=== PATIENT | female | born 1985 | race African-American/Black ===

== ENCOUNTER 2020-10-03 12:09 | Emergency (ER) | payer OTHER ==
[~2020-10-03] VITALS: Ht 170.2 cm; Wt 81.8 kg
[2020-10-03] MEDS ORDERED: LIDOCAINE 5% TRANSDERMAL PATCH TD ONE (14:00)
[2020-10-03] MEDS ORDERED: IBUPROFEN 600 MG TABLET PO ONE (14:00)
[2020-10-03 14:50] VITALS: BP 129/76
== END 2020-10-03 15:00 | disposition home or self-care (01) ==
LOC: EMS 12:11
DX: R10.30 Lower abdominal pain, unspecified (principal); J45.909 Unspecified asthma, uncomplicated
CPT/HCPCS: 99283

== ENCOUNTER 2021-01-26 08:29 | Emergency (ER) | payer OTHER ==
[~2021-01-26] VITALS: Ht 157.5 cm; Wt 82.0 kg
[2021-01-26 08:48] VITALS: BP 126/88
[2021-01-26] MEDS ORDERED: IBUPROFEN 600 MG TABLET PO ONE (09:00)
== END 2021-01-26 10:02 | disposition home or self-care (01) ==
LOC: EMS 08:29
DX: S93.401A Sprain of unspecified ligament of right ankle, initial encounter (principal); J45.909 Unspecified asthma, uncomplicated; W19.XXXA Unspecified fall, initial encounter; Y93.89 Activity, other specified; Y92.89 Other specified places as the place of occurrence of the external cause; Y99.8 Other external cause status
CPT/HCPCS: 99284; 73610-TC; 73630-TC; Z7502; Z7610